=== PATIENT | female | born 1950 | race Caucasian/White ===

== ENCOUNTER 2024-02-20 12:00 | Day surgery (SDC) | payer OTHER ==
[2024-02-20 09:14] LABS: Absolute Eosinophils 0.2 K/uL (0-0.5); Absolute Monocytes 0.7 K/uL (0.1-1.3); Absolute Neutrophil 2.5 K/uL (1.8-8.0); Basophils % 0.8 % (0-1.3); Eosinophils % 3.5 % (0-4.4); Hemoglobin 13.4 g/dL (12.0-15.0); Lymphocytes % 36.7 % (15.3-44.8); MCH 31.8 pg (27.0-35.0); MCHC 32.7 g/dL (32.0-36.0); MCV 97.4 fL (80-100); MPV 10.9 fL (7.6-11.3); Monocytes % 12.2 % (3.3-12.3); Neutrophils % 46.8 % (41.7-73.7); Platelets 145 thou/uL (152-406); RBC Red Blood Cell Count 4.21 M/uL (3.86-4.86); Red Cell Distribution Width 17.4 % (12.1-15.2)
[2024-02-20] MEDS: Ringers Lactate 1,000 ML IV ONE (12:30)
[2024-02-20] MEDS ORDERED: propofoL 200 MG/20 ML VIAL IV ONE ×2 (13:26→13:45)
[2024-02-20] MEDS ORDERED: LIDOCAINE 1% MPF 5 ML VIAL ONE (13:27)
[2024-02-20] MEDS ORDERED: ONDANSETRON 4 MG/2 ML VIAL ONE (13:27)
[2024-02-20] MEDS: CEFOXITIN SODIUM 2 GM/VIAL ONE (13:45)
--- NOTE | 2024-02-20 14:45 | EKG ---
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
[2024-02-20 15:23] VITALS: O2SAT 99
[2024-02-20 15:24] VITALS: BP 96/58; TEMP 98.2
== END 2024-02-20 15:10 | disposition home or self-care (01) ==
LOC: OR 12:00
PROVIDERS: ATTEND Surgery
PROC: XHRPXF7 Replacement of Skin with Bioengineered Allogeneic Construct, External Approach, New Technology Group 7 (ICD-10-PCS; principal; 2024-02-20 13:45)
DX: N82.4 Other female intestinal-genital tract fistulae (principal)
CPT/HCPCS: 93005; 85025; 80048; 36415; 15275; J2704 ×2; J2003; J0694; J2405; J7120

== ENCOUNTER 2024-05-01 11:12 | Day surgery (SDC) | payer OTHER ==
[2024-04-29 08:38] LABS: Anion Gap 6.2 mEq/L (5.0-15.0); Potassium 4.2 mEq/L (3.5-5.1)
[2024-04-29 08:46] LABS: Absolute Eosinophils 0.3 K/uL (0-0.5); Absolute Lymphocytes (CBC) 2.4 K/uL (0.7-4.9); Absolute Monocytes 0.8 K/uL (0.1-1.3); Absolute Neutrophil 3.2 K/uL (1.8-8.0); Basophils % 0.6 % (0-1.3); Hematocrit 44.2 % (36.0-45.0); Hemoglobin 14.8 g/dL (12.0-15.0); Lymphocytes % 36.4 % (15.3-44.8); MCH 32.5 pg (27.0-35.0); MCHC 33.4 g/dL (32.0-36.0); MCV 97.4 fL (80-100); MPV 10.3 fL (7.6-11.3); Monocytes % 11.5 % (3.3-12.3); Neutrophils % 47.5 % (41.7-73.7); Nucleated Red Blood Cells % 0.1 % (0-0); Platelets 144 thou/uL (152-406); RBC Red Blood Cell Count 4.54 M/uL (3.86-4.86)
[2024-05-01] MEDS: Ringers Lactate 1,000 ML IV ONE (11:40)
[2024-05-01] MEDS ORDERED: LIDOCAINE 2% MPF 5 ML VIAL ONE (12:02)
[2024-05-01] MEDS ORDERED: ONDANSETRON 4 MG/2 ML VIAL ONE (12:02)
[2024-05-01] MEDS ORDERED: propofoL 200 MG/20 ML VIAL IV ONE (12:02)
[2024-05-01] MEDS ORDERED: FENTANYL CITR 100 MCG/2 ML ONE (12:02)
[2024-05-01] MEDS ORDERED: EPHEDRINE SULF 50 MG/ML VIAL ONE (12:34)
[2024-05-01] MEDS: CEFAZOLIN SODIUM 1 GM/VIAL ONE (12:39)
[2024-05-01] MEDS: LIDOCAINE HCL/EPINEPHRINE 20 ML MDV ONE (12:57)
[2024-05-01] MEDS ORDERED: dexAMETHasone 10 MG/ML VIAL ONE (12:57)
--- NOTE | 2024-05-01 13:41 | P.OP ---
Preoperative diagnosis: Colovaginal Fistula Postoperative diagnosis: Colovaginal Fistula Primary procedure: Repair of Colovaginal Fistula with [place] Tri-layer matrix Secondary procedure: Exam under anesthesia Anesthesia: GETA Estimated blood loss: <5cc Specimen: none Findings: punctate opening in vagina, not visualized in rectum Complications: None Implants: [place] Trilayer Matrix Transferred to: Recovery Room () Condition: Good
--- NOTE | 2024-05-01 14:11 | OP ---
Date of Procedure: 05/01/2024 Surgeon: Santiago Adamson MD, Preoperative Diagnosis: Colovaginal fistula. Postoperative Diagnosis: Colovaginal fistula. Procedures Performed: 1.Exam under anesthesia. 2.Repair of colovaginal fistula with [place] Tri-Layer Porcine matrix. Anesthesia: General endotracheal. Estimated Blood Loss: Less than 5 cc. Specimen: None. Findings: Punctate opening in the vagina which was not visualized in the rectal upon anoscopy. Complications: None. Implants: [place] Tri-Layer matrix. Disposition: The patient transferred to recovery room in good condition. Procedure In Detail: After informed consent was obtained, patient was brought to the operating room, prepped and draped in the usual sterile fashion after adequate anesthesia was achieved. I performed a rectal examination ultimately placing sequentially longer and larger anoscope into the anal vault. Leaving an anoscope in place, I placed a [place] vaginal speculum in place and examined the vagin al canal. I noted that at the distal aspect of the vaginal canal, there was a small opening consiste nt with a colovaginal fistula. At this point, attempts were made to visualize the inner table of thi s from the rectal side, which were not visualized despite multiple attempts. I also could not place small lacrimal probe through the punctate opening as it appeared too small from the vaginal side to p ass all the way through. There was a small opening but not enough to pass full thickness, at this po int. At this point, I opted to cover and close the vaginal defect with [place] Tri-Layer matrix, and a s such, I placed stay sutures in place of 3-0 and 4-0 chromic on both sides and placed double trimmed portions of the [place] Tri-Layer matrix on top of the vaginal side of the colovaginal fistula and sec ured this with the same set suture over the top while closing, so enclosed primarily the repair in th e vagina as well. Two pieces of the [place] Tri-Layer matrix were placed and the vagina near the vagin al cuff with good approximation of the tissues and closure. There was no leakage at the end of the p rocedure. The area was copiously irrigated with sterile saline and a packing was placed in, at this point. The rectum was examined, at this point. There was no injury at this point as well and a ster ile dressing was placed over top. The patient tolerated the procedure without incident or complicati on and transferred to PACU in good condition. All counts were correct at the end of the case. ADRIENNE/ISELA Voice ID: [id number] Report ID: [id number]
[2024-05-01 14:22] VITALS: O2SAT 97
[2024-05-01 15:50] VITALS: BP 125/59; TEMP 97
== END 2024-05-01 15:32 | disposition home or self-care (01) ==
LOC: OR 11:12
PROVIDERS: ATTEND Surgery
PROC: 0UQG8ZZ Repair Vagina, Via Natural or Artificial Opening Endoscopic (ICD-10-PCS; principal; 2024-05-01 13:00)
DX: N82.3 Fistula of vagina to large intestine (principal)
CPT/HCPCS: 85025; 80048; 36415; 58999; J2704; J2003; J3010; J1100; J2405; J7120; J0690